=== PATIENT | male | born 1985 | race Caucasian/White ===

== ENCOUNTER 2018-03-22 12:17 | Emergency (ER) | payer BC, OTHER ==
[~2018-03-22] VITALS: Ht 152.4 cm; Wt 91.0 kg
[2018-03-22 12:20] VITALS: BP 135/71; PULSE 78; RESP 18; Ht 152.4 cm; Wt 91.0 kg
[2018-03-22] MEDS ORDERED: ACETAMINOPHEN 325 MG TAB PO ONE (13:30)
[2018-03-22] MEDS ORDERED: LIDOCAINE 1% (MDV) 20 ML INJ SC ONE (13:30)
[2018-03-22] MEDS ORDERED: HYDROCODONE/APAP (5/325) TAB PO ONE (14:00)
[2018-03-22] MEDS ORDERED: IBUP-1542 PO (14:14)
--- NOTE | 2018-03-22 14:17 | ERD ---
ER Documentation Chief Complaint Chief Complaint R HAND PAIN AFTER INJURY HPI 32-year-old male presents with laceration on the dorsum of his right middle and index finger after falling while carrying a table top. He has no restricted range of motion or weakness. Tetanus not up-to-date. ROS All systems reviewed and are negative except as per history of present illness. Medications Home Meds Active Scripts Ibuprofen* (Motrin*) 600 Mg Tab, 600 MG PO Q6, #15 TAB Prov:DELFINO CORTES MD 03/22/18 PMhx/Soc Medical and Surgical Hx: pt denies Medical Hx, pt denies Surgical Hx Hx Alcohol Use: No Hx Substance Use: No Hx Tobacco Use: No Smoking Status: Never smoker FmHx Family History: No diabetes, No coronary disease, No other Physical Exam Vitals Vital Signs Date Temp Pulse Resp B/P (MAP) Pulse Ox O2 O2 Flow FiO2 Time Delivery Rate 03/22/18 98.1 78 18 135/71 99 12:20 (92) Physical Exam Const: No acute distress Head: Atraumatic Eyes: Normal Conjunctiva ENT: Normal External Ears, Nose and Mouth. Neck: Full range of motion. No meningismus. Resp: Clear to auscultation bilaterally Cardio: Regular rate and rhythm, no murmurs Abd: Soft, non tender, non distended. Normal bowel sounds Skin: No petechiae or rashes Back: No midline or flank tenderness Ext: No cyanosis, or edema. 1cm laceration across the proximal right middle finger. Patient has full extension of the MCP, PIP and DIP. There is a 0.5 cm laceration in a similar area across the index finger. No appreciable tendon or neurologic deficits. Neur: Awake and alert Psych: Normal Mood and Affect Results 24 hrs Current Medications Medications Dose Sig/Perez Start Time Status Last (Trade) Ordered Route PRN Stop Time Admin Dose Reason Admin 650 mg ONCE ONCE 03/22/18 DC 03/22/18 Acetaminophen PO 13:30 13:34 (Tylenol 03/22/18 13:31 Tab) Lidocaine 20 ml ONCE ONCE 03/22/18 DC (Xylocaine SC 13:30 1% (Mdv) 20 03/22/18 13:31 ml) 1 tab ONCE ONCE 03/22/18 DC 03/22/18 Acetaminophen PO 14:00 13:52 / 1/12/19 14:01 Hydrocodone Bitart ([place] (5/)) Procedures/MDM X-ray right hand 3V interpreted by me: Scaphoid: Normal Bones: No fracture Joints: No dislocation Foreign body: None. Impression-normal right hand x-ray Patient given [place] 5 mg by mouth for pain. Patient given a tetanus booster. Procedure note-right hand was irrigated copiously with normal saline. 2 cc lidocaine was used for local infiltration. 3 5-0 nylon sutures were used to reapproximate the wound on the right middle finger and one 5-0 nylon sutures were used to reapproximate the laceration on the right index finger. Patient tolerated procedure well and wound was dressed. Is no evidence of tendon laceration, deficits, fracture, additional complications. We discharged home with ibuprofen, and recommendations for 2-day wound check in 7-10 days suture removal. Should return sooner for fevers, re dness, new worsening symptoms. The patient was stable with no new complaints during the ER course. Clinically, there is no current evidence to suggest meningitis, sepsis, acute abdomen, pneumonia, stroke, acute coronary syndrome, pulmonary embolism, aortic dissection or any other emergent condition appearing to require further evaluation or hospitalization. Patient counseled regarding my diagnostic impression and care plan. Prior to discharge all questions answered. Pt agrees with treatment plan and understands strict return precautions. Pt is instructed to follow up with primary care provider within 24- 48 hours. Precautionary instructions provided including instructions to return to the ER if not improving or for any worsening or changing symptoms or con cerns. Departure Diagnosis: Primary Impression: Hand laceration Encounter type: initial encounter Foreign body presence: without foreign body Laterality: right Qualified Codes: S61.411A - Laceration without foreign body of right hand, initial encounter Patient Instructions: Laceration, Hand Additional Instructions: X-ray appears normal. Recommend wound check in 2 days and suture removal in 7- 10 days. Recheck sooner for fevers, redness, new symptoms. DELFINO CORTES MD Mar 22, 2018 14:17
[2018-03-22] MEDS ORDERED: DIPHTH/TET/ACEL PERTUSS (ADULT) 0.5 ML VIAL IM* ONE (14:30)
== END 2018-03-22 14:47 | disposition home or self-care (01) ==
LOC: FTE 12:17
DX: S61.212A Laceration without foreign body of right middle finger without damage to nail, initial encounter (principal); W18.39XA Other fall on same level, initial encounter; Y92.9 Unspecified place or not applicable; Z23 Encounter for immunization
CPT/HCPCS: 90471; 90715

== ENCOUNTER 2018-03-26 15:13 | Emergency (ER) | payer OTHER ==
[~2018-03-26] VITALS: Wt 92.1 kg
[~2018-03-26 15:13] MED LIST: IBUP-1542 PO
[2018-03-26 15:21] VITALS: BP 126/65; PULSE 73; RESP 19
--- NOTE | 2018-03-26 16:44 | ERD ---
ER Documentation Chief Complaint Chief Complaint bib self, cc: right hand middle finger sutures HPI 32-year-old male, right-handed, presents to the emergency department, for follow-up of right third finger laceration repaired performed 4 days ago. The patient is complaining of pain, pulsatile sensation, warmth or erythema. Otherwise no fever, no chills. ROS All systems reviewed and are negative except as per history of present illness. Medications Home Meds Active Scripts Cephalexin* (Keflex*) 500 Mg Capsule, 500 MG PO TID for 5 Days, CAP Prov:DWAINE HINDS MD 03/26/18 Ibuprofen* (Motrin*) 600 Mg Tab, 600 MG PO Q6, #15 TAB Prov:DELFINO CORTES MD 03/22/18 Allergies Allergies: Coded Allergies: No Known Allergy (Unverified , 03/26/18) PMhx/Soc Medical and Surgical Hx: pt denies Medical Hx, pt denies Surgical Hx Hx Alcohol Use: No Hx Substance Use: No Hx Tobacco Use: No Smoking Status: Never smoker FmHx Family History: No diabetes, No coronary disease Physical Exam Vitals Physical Exam Const: No acute distress Head: Atraumatic Eyes: Normal Conjunctiva ENT: Normal External Ears, Nose and Mouth. Neck: Full range of motion. No meningismus. Resp: Clear to auscultation bilaterally Cardio: Regular rate and rhythm, no murmurs Abd: Soft, non tender, non distended. Normal bowel sounds Skin: No petechiae or rashes Back: No midline or flank tenderness Ext: Right third finger: Stitches in place, erythema and tenderness to palpation but no fluctuance. Distal neurovascular exam intact. Neur: Awake and alert Psych: Normal Mood and Affect Procedures/MDM Status post laceration repair for days ago. The patient was evaluated for infection and neurovascular compromise. The wound was clean and irrigated with normal saline and dressing applied. Patient is stable, with adequate healing process, but some early signs of infection, okay to discharge home, medication adherence reinforced. some side effects of prescribed medications (headache, rash, nausea, vomiting, diarrhea, drowsiness, habituation, bleeding, hypertension, interactions with other medications) were reviewed. The patient was instructed to follow up with the primary care provider in the next 48h. If symptoms persist, worsen or new symptoms develop, then patient should return to the ED immediately. Instructions explained and given directly by me to the patient with acknowledgment and demonstrated understanding. Disclaimer: Inadvertent spelling and grammatical errors are likely due to EHR/dictation software use and do not reflect on the overall quality of patient care. Also, please note that the electronic time recorded on this note does not necessarily reflect the actual time of the patient encounter. Departure Diagnosis: Primary Impression: Infected finger laceration Condition: Stable Additional Instructions: Thank you very much for allowing us to participate in your care. Your health and safety is our top priority at [facility]. Call your primary care doctor TOMORROW for an appointment during the next 2-4 da ys and bring all the information and medications prescribed. Have prescriptions filled and follow precisely the directions on the label. If the symptoms get worse and your provider is unavailable, return to the Emergency Department immediately. DWAINE HINDS MD Mar 26, 2018 16:44
[2018-03-26] MEDS ORDERED: CEPH-443 PO (16:45)
== END 2018-03-26 16:53 | disposition home or self-care (01) ==
LOC: FTE 15:13
DX: L08.89 Other specified local infections of the skin and subcutaneous tissue (principal)
CPT/HCPCS: 99281